=== PATIENT | female | born 1965 | race Caucasian/White ===

== ENCOUNTER 2016-02-26 15:33 | Emergency (ER) | payer OTHER ==
[~2016-02-26] VITALS: Ht 175.3 cm; Wt 125.3 kg
[~2016-02-26 15:33] MED LIST: ABILIFY5 MG PO; ESCITALOPRAM OX10 MG PO; FENTANYL1 EAC1 TD; FLEXERIL10 MG PO; FOLIC ACID1 MG PO; LEXAPRO10 MG PO; LIPITOR10 MG PO; LISINOPRIL40 MG PO; LORTAB 5-325 M1 EACH PO; OTEZLA30 MG PO; PLAVIX75 MG PO; PROTONIX40 MG PO; TRULICITY0.75 MG/0. SC; ULTRAM50 MG PO
[2016-02-26 16:39] LABS: HEMATOCRIT 41.1 % (36.0-46.0); MCH 28.6 PG (29.0-34.0); MCHC 34.1 G/DL (30.0-36.0); MEAN PLAT.VOLUME 9.4 uM^3 (9.5-12.4); PLATELET COUNT 289 K/uL (156-360); RBC DIS.WIDTH-CV 13.6 % (11.8-14.6); RBC DIS.WIDTH-SD 40.9 % (39-53); RED BLOOD COUNT 4.89 M/uL (3.80-5.20); WHITE BLOOD COUNT 9.7 K/uL (4.1-10.2)
[2016-02-26 16:50] LABS: ADD MIUA? YES; BILIRUBIN NEGATIVE; BLOOD TRACE; COLOR YELLOW ((YELLOW)); GLUCOSE (STRIP) NEGATIVE; KETONES NEGATIVE; LEUKOCYTES NEGATIVE; NITRITE NEGATIVE; PROTEIN (STRIP) NEGATIVE; SPECIFIC GRAVITY 1.019 (1.000-1.030); UROBILINOGEN 0.2 MG/DL (0.2-1.0)
[2016-02-26 16:53] LABS: CHLORIDE 108 mEq/L (99-109); POTASSIUM 3.8 mEq/L (3.7-5.4); SODIUM 141 mEq/L (136-147)
[2016-02-26 16:55] LABS: GLUCOSE 194 mg/dL (70-99)
[2016-02-26 16:57] LABS: ANION GAP 11 MEQ/L (2-14); TOTAL BILIRUBIN 0.3 mg/dL (0.0-1.0)
[2016-02-26 16:59] LABS: ALKALINE PHOSPHATASE 118 IU/L (3-129); GFR ESTIMATE (CALCULATED) > 59 mL/min/
[2016-02-26 17:00] LABS: UREA NITROGEN (BUN) 16 mg/dL (9-23)
[2016-02-26 17:02] LABS: LIPASE 46 U/L (1.0-51.0)
[2016-02-26 17:11] LABS: QUANTITATIVE HCG < 4.0 MIU/ML
[2016-02-26 17:12] LABS: EPITHELIAL CELLS 1+; MUCUS NONE SEEN; RED BLOOD CELLS RARE /HPF (0-5); WHITE BLOOD CELLS NONE SEEN /HPF (0-5)
[2016-02-26 17:13] LABS: BACTERIA NONE SEEN; CASTS NONE SEEN /LPF; CRYSTALS NONE SEEN; UCUL ADDED? NO
[2016-02-26 18:36] LABS: INTERNAL CONTROL VALID? YES; MONOSPOT (MONONUCLEOSIS SEROL) NEGATIVE
[2016-02-26] MEDS ORDERED: STOOL SOFTENER240 MG PO (20:15)
[2016-02-26] MEDS ORDERED: CARAFATE1 GM PO (20:15)
[2016-02-26] MEDS ORDERED: BENTYL20 MG PO (20:15)
[2016-02-26] MEDS ORDERED: NORCO 5/3251 TABLET PO (20:15)
[2016-02-26 20:40] VITALS: BP 104/63
== END 2016-02-26 20:43 | disposition home or self-care (01) ==
LOC: EME 15:33
PROVIDERS: Nurse Practitioner Family
DX: K29.70 Gastritis, unspecified, without bleeding (principal); Z79.899 Other long term (current) drug therapy; C50.919 Malignant neoplasm of unspecified site of unspecified female breast; R79.89 Other specified abnormal findings of blood chemistry; I10 Essential (primary) hypertension; Z86.73 Personal history of transient ischemic attack (TIA), and cerebral infarction without residual deficits
CPT/HCPCS: 74177; 80053; 81003; 83605; 83690; 84702; 85027; 86308; 87086; 87651 90; 93005; 99281; 99285; J1885; J2270; J7030

== ENCOUNTER 2016-03-13 13:52 | Emergency (ER) | payer OTHER ==
[~2016-03-13] VITALS: Ht 175.3 cm; Wt 126.0 kg
[~2016-03-13 13:52] MED LIST changes: +BENTYL20 MG PO; +CARAFATE1 GM PO; +NORCO 5/3251 TABLET PO; +STOOL SOFTENER240 MG PO
[2016-03-13 14:27] LABS: HEMATOCRIT 41.9 % (36.0-46.0); MCHC 33.9 G/DL (30.0-36.0); MCV 82.5 FL (83-99); MEAN PLAT.VOLUME 9.6 uM^3 (9.5-12.4); PLATELET COUNT 318 K/uL (156-360); RBC DIS.WIDTH-CV 13.6 % (11.8-14.6); RBC DIS.WIDTH-SD 39.5 % (39-53); RED BLOOD COUNT 5.08 M/uL (3.80-5.20)
[2016-03-13 14:42] LABS: CHLORIDE 106 mEq/L (99-109); POTASSIUM 3.7 mEq/L (3.7-5.4); SODIUM 144 mEq/L (136-147)
[2016-03-13 14:44] LABS: GLUCOSE 85 mg/dL (70-99)
[2016-03-13 14:45] LABS: ANION GAP 12 MEQ/L (2-14)
[2016-03-13 14:46] LABS: TOTAL BILIRUBIN 0.5 mg/dL (0.0-1.0)
[2016-03-13 14:47] LABS: ALKALINE PHOSPHATASE 139 IU/L (3-129)
[2016-03-13 14:48] LABS: GFR ESTIMATE (CALCULATED) > 59 mL/min/
[2016-03-13 14:49] LABS: UREA NITROGEN (BUN) 14 mg/dL (9-23)
[2016-03-13 14:51] LABS: LIPASE 36 U/L (1.0-51.0)
[2016-03-13] MEDS ORDERED: ANASTROZOLE1 MG PO (15:14)
[2016-03-13] MEDS ORDERED: ENDOCET 5-3251 EACH PO (15:15)
[2016-03-13 15:34] LABS: ADD MIUA? NO; BILIRUBIN NEGATIVE; BLOOD NEGATIVE; COLOR YELLOW ((YELLOW)); GLUCOSE (STRIP) NEGATIVE; KETONES NEGATIVE; LEUKOCYTES NEGATIVE; NITRITE NEGATIVE; PROTEIN (STRIP) NEGATIVE; SPECIFIC GRAVITY 1.011 (1.000-1.030); UCUL ADDED? NO; UROBILINOGEN 0.2 MG/DL (0.2-1.0)
[2016-03-13] MEDS ORDERED: MOTRIN800 MG PO (17:05)
[2016-03-13 21:03] VITALS: BP 150/88
[2016-03-14 11:55] LABS: HBSG INDEX 0.17
[2016-03-14 11:56] LABS: HPCA INDEX 0.07
[2016-03-14 11:57] LABS: ANTI-HEPATITIS A VIRUS (IGM) Nonreactive; HAV INDEX 0.21
[2016-03-14 11:58] LABS: ANTI-HEPATITIS B CORE (IGM) Nonreactive; HBC IgM INDEX 0.09
[2016-03-14 12:22] LABS: ANTI-EPSTEIN-BARR NUCLEAR AG POSITIVE; ANTI-EPSTEIN-BARR VCA IGG POSITIVE; ANTI-EPSTEIN-BARR VCA IGM NEGATIVE
== END 2016-03-13 21:12 | disposition home or self-care (01) ==
LOC: EME 13:52
PROVIDERS: Physician Assistant
DX: N39.0 Urinary tract infection, site not specified (principal); R10.84 Generalized abdominal pain; R79.89 Other specified abnormal findings of blood chemistry; M79.7 Fibromyalgia; I10 Essential (primary) hypertension; C50.919 Malignant neoplasm of unspecified site of unspecified female breast; Z79.899 Other long term (current) drug therapy; Z86.73 Personal history of transient ischemic attack (TIA), and cerebral infarction without residual deficits
CPT/HCPCS: 74000; 80053; 80074; 81003; 83605; 83690; 85027; 86664; 86665; 87040; 87086; 99281; 99285; J0696; J1885; J3010; J7030; J7050

== ENCOUNTER 2016-08-13 15:33 | Emergency (ER) | payer OTHER ==
[~2016-08-13] VITALS: Ht 175.3 cm; Wt 129.5 kg
[~2016-08-13 15:33] MED LIST changes: +ANASTROZOLE1 MG PO; +ENDOCET 5-3251 EACH PO; +MOTRIN800 MG PO
[2016-08-13 17:32] LABS: HEMATOCRIT 40.6 % (36.0-46.0); MCH 27.6 PG (29.0-34.0); MCV 83.7 FL (83-99); MEAN PLAT.VOLUME 9.8 uM^3 (9.5-12.4); PLATELET COUNT 263 K/uL (156-360); RBC DIS.WIDTH-CV 13.3 % (11.8-14.6); RBC DIS.WIDTH-SD 41.1 % (39-53); RED BLOOD COUNT 4.85 M/uL (3.80-5.20); WHITE BLOOD COUNT 7.7 K/uL (4.1-10.2)
[2016-08-13 17:39] LABS: ADD MIUA? YES; BILIRUBIN NEGATIVE; BLOOD NEGATIVE; COLOR AMBER ((YELLOW)); GLUCOSE (STRIP) NEGATIVE; KETONES NEGATIVE; LEUKOCYTES NEGATIVE; NITRITE POSITIVE; PROTEIN (STRIP) NEGATIVE; SPECIFIC GRAVITY 1.013 (1.000-1.030)
[2016-08-13 17:47] LABS: BACTERIA NONE SEEN /HPF; EPITHELIAL CELLS 1+ /HPF; MUCUS TRACE /LPF; RED BLOOD CELLS 0-5 /HPF (0-5); UCUL ADDED? NO; UNCLASSIFIED CASTS 0-5 /LPF; WHITE BLOOD CELLS 0-5 /HPF (0-5)
[2016-08-13 17:48] LABS: CHLORIDE 107 mEq/L (99-109); POTASSIUM 4.2 mEq/L (3.7-5.4); SODIUM 141 mEq/L (136-147)
[2016-08-13 17:50] LABS: GLUCOSE 102 mg/dL (70-99)
[2016-08-13 17:51] LABS: ANION GAP 8 MEQ/L (2-14)
[2016-08-13 17:52] LABS: TOTAL BILIRUBIN 0.4 mg/dL (0.0-1.0)
[2016-08-13 17:53] LABS: ALKALINE PHOSPHATASE 148 IU/L (3-129)
[2016-08-13 17:54] LABS: GFR ESTIMATE (CALCULATED) > 59 mL/min/
[2016-08-13 17:55] LABS: UREA NITROGEN (BUN) 16 mg/dL (9-23)
[2016-08-13 18:02] LABS: QUANTITATIVE HCG < 4.0 MIU/ML
[2016-08-13] MEDS ORDERED: MOTRIN800 MG PO (21:59)
[2016-08-13] MEDS ORDERED: KEFLEX500 MG PO (21:59)
[2016-08-14 00:09] VITALS: BP 130/60
[2016-08-15 12:18] LABS: CHLAMYDIA TRACHOMATIS NEGATIVE; NEISSERIA GONORRHOEAE NEGATIVE
== END 2016-08-13 23:15 | disposition home or self-care (01) ==
LOC: EME 15:33
PROVIDERS: Physician Assistant Medical
DX: N39.0 Urinary tract infection, site not specified (principal); I10 Essential (primary) hypertension; M79.7 Fibromyalgia; L40.50 Arthropathic psoriasis, unspecified; Z85.3 Personal history of malignant neoplasm of breast; Z90.710 Acquired absence of both cervix and uterus
CPT/HCPCS: 74176; 80053; 81003; 84702; 85027; 87086; 87210; 87491; 87591; 99281; 99284; J0696; J1885

== ENCOUNTER 2016-08-15 13:42 | Emergency (ER) | payer OTHER ==
[~2016-08-15] VITALS: Ht 175.3 cm; Wt 129.7 kg
[~2016-08-15 13:42] MED LIST changes: +KEFLEX500 MG PO
[2016-08-15 15:14] LABS: ADD MIUA? YES; BILIRUBIN NEGATIVE; BLOOD NEGATIVE; COLOR AMBER ((YELLOW)); GLUCOSE (STRIP) NEGATIVE; KETONES NEGATIVE; LEUKOCYTES NEGATIVE; NITRITE POSITIVE; PROTEIN (STRIP) NEGATIVE; SPECIFIC GRAVITY 1.006 (1.000-1.030)
[2016-08-15 15:22] LABS: BACTERIA RARE /HPF; EPITHELIAL CELLS RARE /HPF; MUCUS TRACE /LPF; RED BLOOD CELLS 0-5 /HPF (0-5); UCUL ADDED? NO; WHITE BLOOD CELLS 0-5 /HPF (0-5)
[2016-08-15 15:33] LABS: HEMATOCRIT 40.9 % (36.0-46.0); MCHC 33.5 G/DL (30.0-36.0); MCV 83.5 FL (83-99); MEAN PLAT.VOLUME 9.9 uM^3 (9.5-12.4); PLATELET COUNT 266 K/uL (156-360); RBC DIS.WIDTH-CV 13.2 % (11.8-14.6); WHITE BLOOD COUNT 6.7 K/uL (4.1-10.2)
[2016-08-15 15:53] LABS: CHLORIDE 108 mEq/L (99-109); POTASSIUM 4.1 mEq/L (3.7-5.4); SODIUM 141 mEq/L (136-147)
[2016-08-15 15:55] LABS: GLUCOSE 115 mg/dL (70-99)
[2016-08-15 15:56] LABS: ANION GAP 8 MEQ/L (2-14)
[2016-08-15 15:58] LABS: TOTAL BILIRUBIN 0.5 mg/dL (0.0-1.0)
[2016-08-15 15:59] LABS: ALKALINE PHOSPHATASE 139 IU/L (3-129); GFR ESTIMATE (CALCULATED) > 59 mL/min/
[2016-08-15 16:00] LABS: UREA NITROGEN (BUN) 15 mg/dL (9-23)
[2016-08-15 16:02] LABS: LIPASE 32 U/L (1.0-51.0)
[2016-08-15] MEDS ORDERED: ZOFRAN ODT4 MG PO (18:58)
[2016-08-15] MEDS ORDERED: REGLAN10 MG PO (18:58)
[2016-08-15] MEDS ORDERED: BENTYL20 MG PO (18:58)
[2016-08-15 19:03] VITALS: BP 125/95
== END 2016-08-15 19:05 | disposition home or self-care (01) ==
LOC: EME 13:42
DX: T88.7XXA Unspecified adverse effect of drug or medicament, initial encounter (principal); R10.12 Left upper quadrant pain; K76.0 Fatty (change of) liver, not elsewhere classified; R11.2 Nausea with vomiting, unspecified; Z87.440 Personal history of urinary (tract) infections; I10 Essential (primary) hypertension; Z90.49 Acquired absence of other specified parts of digestive tract
CPT/HCPCS: 80053; 81003; 83690; 85027; 93005; 99281; 99284

== ENCOUNTER 2016-09-13 20:41 | Emergency (ER) | payer OTHER ==
[~2016-09-13] VITALS: Ht 175.3 cm; Wt 133.2 kg
[~2016-09-13 20:41] MED LIST changes: +REGLAN10 MG PO; +ZOFRAN ODT4 MG PO
[2016-09-13 21:43] LABS: ADD MIUA? YES; BILIRUBIN NEGATIVE; BLOOD SMALL; COLOR STRAW ((YELLOW)); GLUCOSE (STRIP) 50; KETONES NEGATIVE; LEUKOCYTES NEGATIVE; NITRITE NEGATIVE; PROTEIN (STRIP) NEGATIVE; SPECIFIC GRAVITY 1.006 (1.000-1.030); UROBILINOGEN 0.2 MG/DL (0.2-1.0)
[2016-09-13 21:48] LABS: BACTERIA RARE /HPF; EPITHELIAL CELLS 1+ /HPF; MUCUS NONE SEEN /LPF; RED BLOOD CELLS 0-5 /HPF (0-5); UCUL ADDED? NO; WHITE BLOOD CELLS 0-5 /HPF (0-5)
[2016-09-13 22:34] LABS: BASOPHIL COUNT 0.1 K/uL (0-0.1); EOSINOPHIL (%) 2.9 % (0-5); EOSINOPHIL COUNT 0.2 K/uL (0-0.3); HEMATOCRIT 38.1 % (36.0-46.0); IMMATURE GRANULOCYTE (%) 1.1 % (0.0-0.7); IMMATURE GRANULOCYTE COUNT 0.1 K/uL; INSTRUMENT ABS NEUTROPHIL CT 3.3 K/uL; LYMPHOCYTE COUNT 3.1 K/uL (1.0-2.8); MCH 27.6 PG (29.0-34.0); MCHC 33.3 G/DL (30.0-36.0); MCV 82.8 FL (83-99); MEAN PLAT.VOLUME 9.9 uM^3 (9.5-12.4); MONOCYTE (%) 6.8 % (3-12); MONOCYTE COUNT 0.5 K/uL (0-0.8); NEUTROPHIL (%) 46.1 % (45-76); NEUTROPHIL COUNT 3.3 K/uL (1.8-6.4); PLATELET COUNT 240 K/uL (156-360); RBC DIS.WIDTH-CV 13.4 % (11.8-14.6); RBC DIS.WIDTH-SD 39.8 % (39-53); WHITE BLOOD COUNT 7.2 K/uL (4.1-10.2)
[2016-09-13] MEDS ORDERED: OXYBUTYNIN CHLOR5 M1 PO (22:42)
[2016-09-13 22:44] LABS: CHLORIDE 107 mEq/L (99-109); POTASSIUM 3.5 mEq/L (3.7-5.4); SODIUM 140 mEq/L (136-147)
[2016-09-13 22:45] LABS: GLUCOSE 211 mg/dL (70-99)
[2016-09-13 22:47] LABS: ANION GAP 9 MEQ/L (2-14)
[2016-09-13 22:49] LABS: GFR ESTIMATE (CALCULATED) > 59 mL/min/
[2016-09-13 22:50] LABS: UREA NITROGEN (BUN) 16 mg/dL (9-23)
[2016-09-13] MEDS ORDERED: PYRIDIUM100 MG PO (22:52)
[2016-09-13] MEDS ORDERED: NORCO 5/3251 TABLET PO (23:03)
[2016-09-13 23:11] VITALS: BP 138/71
== END 2016-09-13 23:12 | disposition home or self-care (01) ==
LOC: EME 20:41
PROVIDERS: Physician Assistant
DX: R30.0 Dysuria (principal); Z87.440 Personal history of urinary (tract) infections; I10 Essential (primary) hypertension; M79.7 Fibromyalgia; Z86.73 Personal history of transient ischemic attack (TIA), and cerebral infarction without residual deficits; Z88.6 Allergy status to analgesic agent; Z88.2 Allergy status to sulfonamides
CPT/HCPCS: 74176; 80048; 81003; 85025; 99281; 99284

== ENCOUNTER 2016-12-21 18:51 | Emergency (ER) | payer OTHER ==
[~2016-12-21] VITALS: Ht 175.3 cm; Wt 133.0 kg
[~2016-12-21 18:51] MED LIST changes: +OXYBUTYNIN CHLOR5 M1 PO; +PYRIDIUM100 MG PO
[2016-12-21 19:49] LABS: ADD MIUA? YES; BILIRUBIN NEGATIVE; BLOOD LARGE; COLOR YELLOW ((YELLOW)); GLUCOSE (STRIP) NEGATIVE; KETONES NEGATIVE; LEUKOCYTES LARGE; NITRITE NEGATIVE; PROTEIN (STRIP) 30; SPECIFIC GRAVITY 1.008 (1.000-1.030); UROBILINOGEN 0.2 MG/DL (0.2-1.0)
[2016-12-21 19:50] LABS: HEMATOCRIT 39.4 % (36.0-46.0); MCH 28.1 PG (29.0-34.0); MCHC 34.3 G/DL (30.0-36.0); MCV 82.1 FL (83-99); MEAN PLAT.VOLUME 10.5 uM^3 (9.5-12.4); PLATELET COUNT 270 K/uL (156-360); RBC DIS.WIDTH-SD 38.8 % (39-53); WHITE BLOOD COUNT 7.9 K/uL (4.1-10.2)
[2016-12-21 19:58] LABS: BACTERIA RARE /HPF; EPITHELIAL CELLS 1+ /HPF; MUCUS TRACE /LPF; RED BLOOD CELLS 30-40 /HPF (0-5); WHITE BLOOD CELLS 15-20 /HPF (0-5)
[2016-12-21 20:19] LABS: CHLORIDE 108 mEq/L (99-109); POTASSIUM 4.6 mEq/L (3.7-5.4); SODIUM 138 mEq/L (136-147)
[2016-12-21 20:22] LABS: GLUCOSE 224 mg/dL (70-99)
[2016-12-21 20:23] LABS: ANION GAP 9 MEQ/L (2-14)
[2016-12-21 20:24] LABS: TOTAL BILIRUBIN 0.4 mg/dL (0.0-1.0)
[2016-12-21 20:25] LABS: ALKALINE PHOSPHATASE 147 IU/L (3-129); GFR ESTIMATE (CALCULATED) > 59 mL/min/
[2016-12-21 20:26] LABS: UREA NITROGEN (BUN) 15 mg/dL (9-23)
[2016-12-21 20:29] LABS: LIPASE 39 U/L (1.0-51.0)
[2016-12-21] MEDS ORDERED: ZOFRAN ODT4 MG PO (21:38)
[2016-12-21] MEDS ORDERED: BENTYL10 MG PO (21:38)
[2016-12-21 21:45] LABS: PROTHROMBIN TIME 11.3 SEC (10.2-12.9)
[2016-12-21 21:48] LABS: PTT 27.5 SEC (25-37)
[2016-12-21 22:07] VITALS: BP 162/70
== END 2016-12-21 22:10 | disposition home or self-care (01) ==
LOC: EME 18:51
PROVIDERS: Nurse Practitioner Family
DX: N93.9 Abnormal uterine and vaginal bleeding, unspecified (principal); R10.9 Unspecified abdominal pain; R11.0 Nausea; Z98.890 Other specified postprocedural states; Z86.718 Personal history of other venous thrombosis and embolism; Z79.01 Long term (current) use of anticoagulants; Z79.02 Long term (current) use of antithrombotics/antiplatelets; Z90.710 Acquired absence of both cervix and uterus; Z90.722 Acquired absence of ovaries, bilateral; Z90.49 Acquired absence of other specified parts of digestive tract; I10 Essential (primary) hypertension; Z85.3 Personal history of malignant neoplasm of breast
CPT/HCPCS: 74177; 80053; 81003; 83690; 85027; 85610; 85730; 99281; 99285; J2405

== ENCOUNTER 2017-02-14 17:21 | Emergency (ER) | payer OTHER ==
[~2017-02-14] VITALS: Ht 175.3 cm; Wt 132.6 kg
[~2017-02-14 17:21] MED LIST changes: +BENTYL10 MG PO
[2017-02-14] MEDS ORDERED: VIBRAMYCIN100 MG PO (19:32)
[2017-02-14 20:16] VITALS: BP 157/111
== END 2017-02-14 20:17 | disposition home or self-care (01) ==
LOC: EME 17:21
DX: L03.115 Cellulitis of right lower limb (principal); I10 Essential (primary) hypertension; M79.7 Fibromyalgia; L40.50 Arthropathic psoriasis, unspecified; Z86.718 Personal history of other venous thrombosis and embolism; Z85.3 Personal history of malignant neoplasm of breast; Z88.2 Allergy status to sulfonamides; Z88.6 Allergy status to analgesic agent; Z88.8 Allergy status to other drugs, medicaments and biological substances; Z91.041 Radiographic dye allergy status
CPT/HCPCS: 99281; 99283

== ENCOUNTER 2017-04-12 10:13 | Emergency (ER) | payer OTHER ==
[~2017-04-12] VITALS: Ht 175.3 cm; Wt 130.8 kg
[~2017-04-12 10:13] MED LIST changes: +VIBRAMYCIN100 MG PO
[2017-04-12 11:07] LABS: APPEARANCE SL.HAZY ((CLEAR)); BILIRUBIN NEGATIVE; BLOOD SMALL; COLOR YELLOW ((YELLOW)); GLUCOSE (STRIP) >=500; KETONES 5; LEUKOCYTES NEGATIVE; NITRITE NEGATIVE; PROTEIN (STRIP) NEGATIVE; UROBILINOGEN 0.2 MG/DL (0.2-1.0)
[2017-04-12 11:10] LABS: BACTERIA NONE SEEN /HPF; EPITHELIAL CELLS 1+ /HPF; MUCUS TRACE /LPF; RED BLOOD CELLS 0-5 /HPF (0-5); UCUL ADDED? NO; WHITE BLOOD CELLS 0-5 /HPF (0-5)
[2017-04-12 11:35] LABS: BASOPHIL (%) 1.3 % (0-1); BASOPHIL COUNT 0.1 K/uL (0-0.1); EOSINOPHIL (%) 4.4 % (0-5); EOSINOPHIL COUNT 0.2 K/uL (0-0.3); HEMATOCRIT 39.9 % (36.0-46.0); HEMOGLOBIN 13.6 G/DL (11.9-15.5); IMMATURE GRANULOCYTE (%) 1.3 % (0.0-0.7); LYMPHOCYTE (%) 35.1 % (15-42); LYMPHOCYTE COUNT 1.4 K/uL (1.0-2.8); MCH 28.2 PG (29.0-34.0); MCHC 34.1 G/DL (30.0-36.0); MCV 82.8 FL (83-99); MONOCYTE (%) 6.2 % (3-12); MONOCYTE COUNT 0.2 K/uL (0-0.8); NEUTROPHIL (%) 51.7 % (45-76); RBC DIS.WIDTH-CV 13.7 % (11.8-14.6); RBC DIS.WIDTH-SD 40.6 % (39-53); RED BLOOD COUNT 4.82 M/uL (3.80-5.20); WHITE BLOOD COUNT 3.9 K/uL (4.1-10.2)
[2017-04-12 11:36] LABS: PLATELET COUNT 180 K/uL (156-360)
[2017-04-12 11:43] LABS: CHLORIDE 107 mEq/L (99-109); POTASSIUM 4.3 mEq/L (3.7-5.4); SODIUM 137 mEq/L (136-147)
[2017-04-12 11:45] LABS: GLUCOSE 317 mg/dL (70-99)
[2017-04-12 11:49] LABS: GFR ESTIMATE (CALCULATED) > 59 mL/min/
[2017-04-12 11:50] LABS: UREA NITROGEN (BUN) 16 mg/dL (9-23)
[2017-04-12 12:27] LABS: LACTATE DEHYDROGENASE 155 IU/L (20-246)
[2017-04-12 14:11] VITALS: BP 143/65
[2017-04-15 17:40] LABS: Mycelial Phase Antibody <1:8 (<1:8); Yeast Phase Anitbody <1:8 (<1:8)
== END 2017-04-12 14:51 | disposition home or self-care (01) ==
LOC: EME 10:13
PROVIDERS: Emergency Medicine
DX: R50.9 Fever, unspecified (principal); R73.9 Hyperglycemia, unspecified; R91.1 Solitary pulmonary nodule; Z87.01 Personal history of pneumonia (recurrent); I10 Essential (primary) hypertension; Z86.718 Personal history of other venous thrombosis and embolism; Z79.02 Long term (current) use of antithrombotics/antiplatelets; Z85.3 Personal history of malignant neoplasm of breast
CPT/HCPCS: 71046; 71260; 80048; 81003; 83615; 84145 90; 85025; 86698 90; 87449; 87502; 93005; 99281; 99285; J7030

== ENCOUNTER 2017-05-27 17:14 | Emergency (ER) | payer OTHER ==
[~2017-05-27] VITALS: Ht 175.3 cm; Wt 132.9 kg
[2017-05-27 18:30] LABS: HEMATOCRIT 40.8 % (36.0-46.0); MCH 28.9 PG (29.0-34.0); MCHC 34.3 G/DL (30.0-36.0); MCV 84.3 FL (83-99); PLATELET COUNT 241 K/uL (156-360); RBC DIS.WIDTH-CV 13.3 % (11.8-14.6); RBC DIS.WIDTH-SD 40.9 % (39-53); RED BLOOD COUNT 4.84 M/uL (3.80-5.20); WHITE BLOOD COUNT 7.3 K/uL (4.1-10.2)
[2017-05-27 18:40] LABS: CHLORIDE 106 mEq/L (99-109); POTASSIUM 3.8 mEq/L (3.7-5.4); SODIUM 143 mEq/L (136-147)
[2017-05-27 18:41] LABS: GLUCOSE 137 mg/dL (70-99)
[2017-05-27 18:45] LABS: GFR ESTIMATE (CALCULATED) > 59 mL/min/
[2017-05-27 18:46] LABS: UREA NITROGEN (BUN) 14 mg/dL (9-23)
[2017-05-27 18:50] LABS: TROP-I INTERPRETATION NEGATIVE; TROPONIN-I < 0.01 ng/mL (0.0-0.30)
[2017-05-27 23:09] LABS: TROP-I INTERPRETATION NEGATIVE; TROPONIN-I < 0.01 ng/mL (0.0-0.30)
[2017-05-28 00:21] VITALS: BP 129/61
[2017-05-28] MEDS ORDERED: GLUCOPHAGE500 MG PO (16:06)
== END 2017-05-28 00:23 | disposition home or self-care (01) ==
LOC: EME 17:14
PROVIDERS: Physician Assistant
DX: R06.02 Shortness of breath (principal); I10 Essential (primary) hypertension; M79.7 Fibromyalgia; L40.50 Arthropathic psoriasis, unspecified; Z85.3 Personal history of malignant neoplasm of breast; Z90.49 Acquired absence of other specified parts of digestive tract; Z86.718 Personal history of other venous thrombosis and embolism; Z79.02 Long term (current) use of antithrombotics/antiplatelets; Z88.6 Allergy status to analgesic agent; Z88.2 Allergy status to sulfonamides; Z88.8 Allergy status to other drugs, medicaments and biological substances
CPT/HCPCS: 71046; 71275; 80048; 84484; 85027; 93005; 99281; 99285

== ENCOUNTER → 2017-06-01 | Outpatient (CLI) | payer OTHER ==
[~2017-06-01] VITALS: Ht 175.3 cm; Wt 133.3 kg
[~2017-06-01] MED LIST changes: +GLUCOPHAGE500 MG PO
== END | disposition home or self-care (01) ==
LOC: AMB 08:15
PROVIDERS: Internal Medicine
PROC: 0DBM8ZX Excision of Descending Colon, Via Natural or Artificial Opening Endoscopic, Diagnostic (ICD-10-PCS; principal; 2017-06-01)
DX: Z12.11 Encounter for screening for malignant neoplasm of colon (principal); Z85.3 Personal history of malignant neoplasm of breast; Z80.0 Family history of malignant neoplasm of digestive organs; D12.4 Benign neoplasm of descending colon; D17.79 Benign lipomatous neoplasm of other sites; K64.8 Other hemorrhoids; K57.30 Diverticulosis of large intestine without perforation or abscess without bleeding; I10 Essential (primary) hypertension; F31.9 Bipolar disorder, unspecified; K21.9 Gastro-esophageal reflux disease without esophagitis; E78.00 Pure hypercholesterolemia, unspecified; E66.01 Morbid (severe) obesity due to excess calories; Z68.41 Body mass index [BMI] 40.0-44.9, adult; E11.9 Type 2 diabetes mellitus without complications; Z90.49 Acquired absence of other specified parts of digestive tract; Z83.3 Family history of diabetes mellitus; Z82.3 Family history of stroke; Z82.49 Family history of ischemic heart disease and other diseases of the circulatory system; Z79.84 Long term (current) use of oral hypoglycemic drugs; Z88.2 Allergy status to sulfonamides; Z88.8 Allergy status to other drugs, medicaments and biological substances
CPT/HCPCS: 82948; 88305

== ENCOUNTER 2017-06-14 11:56 | Emergency (ER) | payer OTHER ==
[~2017-06-14] VITALS: Ht 175.3 cm; Wt 131.4 kg
[2017-06-14 12:48] LABS: HEMOGLOBIN 14.8 G/DL (11.9-15.5); MCH 28.8 PG (29.0-34.0); MCHC 34.4 G/DL (30.0-36.0); MCV 83.8 FL (83-99); PLATELET COUNT 259 K/uL (156-360); RBC DIS.WIDTH-CV 13.3 % (11.8-14.6); RBC DIS.WIDTH-SD 40.8 % (39-53); RED BLOOD COUNT 5.13 M/uL (3.80-5.20); WHITE BLOOD COUNT 7.4 K/uL (4.1-10.2)
[2017-06-14 13:00] LABS: CHLORIDE 110 mEq/L (99-109); POTASSIUM 3.9 mEq/L (3.7-5.4); SODIUM 142 mEq/L (136-147)
[2017-06-14 13:01] LABS: GLUCOSE 101 mg/dL (70-99)
[2017-06-14 13:05] LABS: CREATININE 0.9 mg/dL (0.6-1.3); GFR ESTIMATE (CALCULATED) > 59 mL/min/
[2017-06-14 13:06] LABS: UREA NITROGEN (BUN) 16 mg/dL (9-23)
[2017-06-14 13:49] LABS: D-DIMER ELISA < 150.00 ng/mLDDU (<230)
[2017-06-14 15:52] LABS: TROP-I INTERPRETATION NEGATIVE; TROPONIN-I < 0.01 ng/mL (0.0-0.30)
[2017-06-14 16:30] VITALS: BP 108/66
[2017-06-14 16:31] LABS: TROP-I INTERPRETATION NEGATIVE; TROPONIN-I 0.01 ng/mL (0.0-0.30)
[2017-06-14] MEDS ORDERED: PERCOCET 5/31 TABLET PO (16:39)
== END 2017-06-14 17:06 | disposition home or self-care (01) ==
LOC: EME 11:56
PROVIDERS: Emergency Medicine
DX: R07.89 Other chest pain (principal); I10 Essential (primary) hypertension; E11.9 Type 2 diabetes mellitus without complications; Z79.84 Long term (current) use of oral hypoglycemic drugs; K21.9 Gastro-esophageal reflux disease without esophagitis; M79.7 Fibromyalgia; L40.50 Arthropathic psoriasis, unspecified; G43.909 Migraine, unspecified, not intractable, without status migrainosus; F32.9 Major depressive disorder, single episode, unspecified; Z86.73 Personal history of transient ischemic attack (TIA), and cerebral infarction without residual deficits; Z86.718 Personal history of other venous thrombosis and embolism; Z85.3 Personal history of malignant neoplasm of breast; Z90.49 Acquired absence of other specified parts of digestive tract; Z96.0 Presence of urogenital implants; Z88.6 Allergy status to analgesic agent; Z88.2 Allergy status to sulfonamides; Z88.8 Allergy status to other drugs, medicaments and biological substances
CPT/HCPCS: 71046; 80048; 84484; 85027; 85379; 93005; 99281; 99284

== ENCOUNTER → 2017-08-26 | Outpatient (CLI) | payer OTHER ==
[~2017-08-26] MED LIST changes: +PERCOCET 5/31 TABLET PO
== END | disposition home or self-care (01) ==
LOC: NUC 07:00 → RAD 10:24 → NUC 11:00
DX: I31.9 Disease of pericardium, unspecified (principal); R06.02 Shortness of breath; Z85.3 Personal history of malignant neoplasm of breast
CPT/HCPCS: 71046; 78582; A9540; A9567

== ENCOUNTER → 2017-08-26 | Outpatient (CLI) | payer OTHER | END | disposition home or self-care (01) | LOC: EKG 10:30 | DX: J84.9 Interstitial pulmonary disease, unspecified (principal) | CPT/HCPCS: 93306 ==

== ENCOUNTER 2017-09-10 17:40 | Emergency (ER) | payer OTHER ==
[~2017-09-10] VITALS: Ht 175.3 cm; Wt 131.4 kg
[2017-09-10 21:44] VITALS: BP 138/80
== END 2017-09-10 21:45 | disposition home or self-care (01) ==
LOC: EME 17:40
DX: F32.9 Major depressive disorder, single episode, unspecified (principal); I10 Essential (primary) hypertension; M79.7 Fibromyalgia; E11.9 Type 2 diabetes mellitus without complications; L40.50 Arthropathic psoriasis, unspecified; Z90.49 Acquired absence of other specified parts of digestive tract; Z86.718 Personal history of other venous thrombosis and embolism; Z85.3 Personal history of malignant neoplasm of breast; Z79.84 Long term (current) use of oral hypoglycemic drugs; Z79.02 Long term (current) use of antithrombotics/antiplatelets; Z88.6 Allergy status to analgesic agent; Z88.2 Allergy status to sulfonamides; Z88.8 Allergy status to other drugs, medicaments and biological substances
CPT/HCPCS: 90839; 99281; 99283